=== PATIENT | male | born 1990 | race Caucasian/White ===

== ENCOUNTER 2022-12-21 16:34 | Emergency (ER) | payer OTHER ==
[2022-12-21 16:46] VITALS: BP 138/74
[2022-12-21] MEDS ORDERED: AMOX/CLAV 875 MG/125 MG TABLET PO STA (16:48)
[2022-12-21] MEDS ORDERED: TETANUS/DIPHTHERIA/PERTUSSIS 0.5 ML SYRINGE IM ONE (16:48)
--- NOTE | 2022-12-21 16:53 | ED Physician Documentation ---
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 Animal control is involved.) PD PAST MEDICAL HISTORY - Present Medications Home Medications: Ambulatory Orders Medication Instructions Recorded Confirmed Amox/Clav 875/125 [Augmentin] 1 each PO Q12H #10 tablet 12/21/22 - Allergies Allergies/Adverse Reactions: Allergies Allergy/AdvReac Type Severity Reaction Status Date / Time No Known Drug Allergies Allergy Verified 12/21/22 16:38 PD ED PE NORMAL - Vitals Vital signs reviewed: Yes - General General: Alert and oriented X 3, No acute distress - Extremities Extremities: Other (On the dorsal side of the left distal forearm approximately 6 cm proximal to the wrist flexor crease there are scattered puncture wounds with some abrasion wrapping around on the ulnar side. Nothing deep or needing primary closure. Normal neurovascular function in the hand.) - Neuro Neuro: Alert and oriented X 3, Normal speech Results - Vitals Vitals: Vital Signs - 24 hr 12/21/22 16:39 Temperature 37.0 C Heart Rate 76 Respiratory 18 Rate Blood Pressure 138/74 H O2 Saturation 99 Oxygen O2 Source Room air PD Medical Decision Making - ED course ED course: Wounds were irrigated and dressed, he was counseled on wound care and started on Augmentin. Departure - Departure Disposition: 01 Home, Self Care Clinical Impression: Dog bite of left wrist Qualifiers: Encounter type: initial encounter Qualified Code(s): S61.552A - Open bite of left wrist, initial encounter Condition: Good Record reviewed to determine appropriate education?: Yes Instructions: ED Bite Animal General Prescriptions: Amox/Clav 875/125 [Augmentin] 1 each PO Q12H #10 tablet Comments: Presume animal control will quarantine the animal and notify you if there are any concerns. You can wash with soap and water and keep it covered with a Band- Aid. Return for any signs of infection including redness, swelling, drainage, increased pain, or fevers. Note for your records that you received a Tdap shot today. Description of the injury as placed in the medical record: On the dorsal side of the left distal forearm approximately 6 cm proximal to the wrist flexor crease there are scattered puncture wounds with some abrasion wrapping around on the ulnar side. Nothing deep or needing primary closure. Normal neurovascular function in the hand.
== END 2022-12-21 17:17 | disposition home or self-care (01) ==
LOC: ED 16:34
DX: S61.552A Open bite of left wrist, initial encounter (principal); W54.0XXA Bitten by dog, initial encounter; Y99.0 Civilian activity done for income or pay; Z23 Encounter for immunization; Z71.85 Encounter for immunization safety counseling
CPT/HCPCS: 1040M; 90471; 90715; 99283; A9270